=== PATIENT | male | born 1975 | race American Indian/Alaskan Native ===

== ENCOUNTER 2021-10-06 16:10 | Emergency (ER) | payer OTHER ==
--- NOTE | 2021-10-06 20:02 | Emergency Department Report ---
Minor Respiratory - HPI Chief Complaint: Upper Respiratory Infection Stated Complaint: COUGH/CHEST TIGHT/MUSCLE ACHE Time Seen by Provider: 10/06/21 19:41 Duration: 4 Days Minor Respiratory: Yes Rhinorrhea, Yes Sore Throat, Yes Able to Tolerate Fluids, Yes Cough, No Ear Pain, No Chest Pain, No Shortness of Breath, No Fever Other History: 46-year-old -[place] male with a significant past medical history of lupus HIV diabetes and A. fib presents to the emergency room complaining of sore throat fatigue diarrhea and cough which is improved today with cough medication. Patient states he had a positive Covid exposure last Sunday. Patient states that on Sunday he had a negative Covid test. Patient states he is fully vaccinated. Denies any fever no chills. ED Review of Systems ROS: Stated complaint: COUGH/CHEST TIGHT/MUSCLE ACHE Other details as noted in HPI Comment: All other systems reviewed and negative ED Past Medical Hx - Past Medical History Hx Hypertension: Yes Hx Diabetes: Yes Hx HIV: Yes Additional medical history: Lupus - Medications Home Medications: Home Medications Medication Instructions Recorded Confirmed Last Taken Type Benzonatate [Tessalon Perles] 100 mg PO Q8HR PRN #15 capsule 10/06/21 Unknown Rx Loratadine [Claritin] 10 mg PO QDAY #10 tablet 10/06/21 Unknown Rx Minor Respiratory Exam - Exam General: Vital signs noted. No distress. Alert and acting appropriately. HEENT: Yes Moist Mucous Membranes, No Pharyngeal Erythema, No Pharyngeal Exudates, No Rhinorrhea, No Conjuctival Injection, No Frontal Tenderness, No Maxillary Tenderness Ear: Neither TM Bulge, Neither TM Erythema, Neither EAC Pain, Neither EAC Discharge Neck: Yes Supple, No Adenopathy Lungs: Yes Good Air Exchange, Yes Cough, No Wheezes, No Ronchi, No Stridor, No Labored Respirations, No Retractions, No Use of Accessory Muscles, No Other Abnormal Lung Sounds Heart: Yes Regular, No Murmur Abdomen: Yes Normal Bowel Sounds, No Tenderness, No Peritoneal Signs Skin: No Rash, No Edema Neurologic: Alert and oriented, no deficits. Musculoskeletal: Unremarkable. ED Course Vital Signs 10/06/21 16:14 Temperature 97.9 F Pulse Rate 98 H Respiratory 14 Rate Blood Pressure 132/78 [Left] O2 Sat by Pulse 100 Oximetry ED Medical Decision Making - Medical Decision Making 46-year-old -[place] male with a significant past medical history of lupus HIV diabetes and A. fib presents to the emergency room complaining of sore throat fatigue diarrhea and cough which is improved today with cough medicati on. Patient states he had a positive Covid exposure last Sunday. Patient states that on Sunday he had a negative Covid test. Patient states he is fully vaccinated. Denies any fever no chills. Discussed with patient I recommend retest of Covid. Increase your fluids take your Tylenol for body aches. Take Tessalon Perles as prescribed. [id number] Zyrtec's or Claritin will help. Critical care attestation.: If time is entered above; I have spent that time in minutes in the direct care of this critically ill patient, excluding procedure time. ED Disposition Clinical Impression: Suspected COVID-19 virus infection Disposition: HOME / SELF CARE / HOMELESS Is pt being admited?: No Does the pt Need Aspirin: No Condition: Stable Instructions: COVID-19 Frequently Asked Questions, COVID-19: How to Protect Yourself and Others - CDC, Prevent the Spread of COVID-19 if You Are Sick - CDC Additional Instructions: Your symptoms appear most consistent with a nonspecific viral syndrome. However, given this current pandemic, COVID-19 is in the differential of possibilities. Despite your previous negative COVID-19 test, I do recommend repeat outpatient Covid 19 testing. In the meantime, isolate/quarantine yourself and stay away from anyone who is elderly, immunocompromised or chronically ill. You can use ibuprofen every 6-8 hours and Tylenol every 4-8 hours, using the dosing on the back of the bottle, as needed for any fever or body aches. Return to the emergency department with any worsening of your symptoms, development of chest pain or shortness of breath, or with any acute distress. Recommend Claritin 10 mg. Try using Tessalon Perles to see if that helps with your cough. Prescriptions: Loratadine [Claritin] 10 mg PO QDAY #10 tablet Benzonatate [Tessalon Perles] 100 mg PO Q8HR PRN #15 capsule PRN Reason: Cough Referrals: MARCIO PALMER MD [Staff Physician] - 3-5 Days [id number] AVENDANO MD [Staff Physician] - 3-5 Days SKY CHASE MD [Staff Physician] - 3-5 Days Time of Disposition: 20:02
[2021-10-06 21:04] VITALS: BP 140/95
== END 2021-10-06 21:31 | disposition home or self-care (01) ==
LOC: ED 16:10
DX: J02.9 Acute pharyngitis, unspecified (principal); R53.83 Other fatigue; R05.9 Cough, unspecified; Z20.822 Contact with and (suspected) exposure to COVID-19; I10 Essential (primary) hypertension; E11.9 Type 2 diabetes mellitus without complications
CPT/HCPCS: 99282